=== PATIENT | male | born 2000 | race Caucasian/White ===

== ENCOUNTER 2022-06-22 00:08 | Emergency (ER) | payer BC ==
[~2022-06-22] VITALS: Ht 177.8 cm; Wt 75.2 kg
[2022-06-22] MEDS ORDERED: NOVOLIN R100 UNIT/1 INJ (00:25)
== END 2022-06-22 01:12 | disposition home or self-care (01) ==
LOC: ED 00:08
DX: S90.122A Contusion of left lesser toe(s) without damage to nail, initial encounter (principal); E10.9 Type 1 diabetes mellitus without complications; Z88.0 Allergy status to penicillin; Z88.8 Allergy status to other drugs, medicaments and biological substances; W22.8XXA Striking against or struck by other objects, initial encounter
CPT/HCPCS: 73660; 99283-25; A9270